=== PATIENT | male | born 1945 | race Caucasian/White ===

== ENCOUNTER 2017-05-17 11:08 | Inpatient (IN) ==
--- NOTE | 2017-05-17 11:32 | Emergency Department Note ---
Disposition Clinical Impression: Frail elderly, History of diabetes mellitus, History of hypertension, Tachycardia, Abnormal EKG, Pleural effusion, History of prostate cancer, Anemia HLD (hyperlipidemia) Qualifiers: Hyperlipidemia type: unspecified Qualified Code(s): E78.5 - Hyperlipidemia, unspecified Disposition: Admitted As Inpatient General Adult HPI - General Chief complaint: ED Chest Pain Stated complaint: chest pain Time Seen by Provider: 05/17/17 11:14 Source: patient, EMS Limitations: no limitations - History of Present Illness HPI Narrative: 71-year-old male presents to emergency department complaining of right-sided chest pain. The pain is associated with breathing and is sharp. There is no history of trauma rash or fever no cough coughing up blood like swelling or pain or syncope. The patient has no history of CAD, cardiac arrhythmia, primary lung problems, no previous DVT PE or current anticoagulation therapy. The patient reports he has a history of prostate cancer. There is been no abdominal pain vomiting or diarrhea. There is no history of fever or flank pain. The patient describes right-sided chest pain associated with breathing. This began last evening. There is no history of leg swelling or CHF. No problems moving the arms or legs independently. Patient has no history of aneurysm and there is no history of cool or weak or blue arms or legs. Pain Scale: 5 - Related Data Home Medications Medication Instructions Recorded Confirmed RX: Atorvastatin Calcium [Lipitor] 80 mg PO DAILY 01/07/15 05/17/17 RX: Cholecalciferol (D-3) 5,000 unit PO DAILY 01/07/15 05/17/17 RX: Lisinopril/Hydrochlorothiazide 1 tab PO DAILY 01/07/15 05/17/17 [Zestoretic 20-12.5 mg Tablet] RX: Primidone [Mysoline] 50 mg PO TID 01/07/15 05/17/17 RX: Metformin HCl [Metformin HCl 1,000 mg PO DAILY 11/25/16 05/17/17 ER] Previous Rx's Medication Instructions Recorded RX: Acetaminophen [Tylenol] 650 mg PO Q6HR PRN #0 tablet 11/25/16 Allergies Allergy/AdvReac Type Severity Reaction Status Date / Time meloxicam AdvReac See Verified 01/20/17 11:04 Comments All systems ED: reviewed and negative except as stated. Past Medical History - Past Medical History Medical history: Reports: diabetes, hyperlipidemia, hypertension Psychiatric history: Reports: no psych history - Social History Smoking Status: Former smoker Smokeless Tobacco Status: No Alcohol use: Reports: none Drug use: Reports: none Physical Exam - General Limitations: no limitations General appearance: alert, in distress - Head Head exam: atraumatic, normocephalic, normal inspection - Eye Eye exam: Present: normal appearance, PERRL, EOMI - ENT ENT exam: normal exam, normal oropharynx, mucous membranes moist, TM's normal bilaterally, normal external ear exam - Neck Neck exam: Present: normal inspection, full ROM, trachea midline - Chest Chest inspection: Present: normal inspection, symmetric chest wall rise. Absent : tenderness, rash - Respiratory Respiratory exam: Present: normal lung sounds bilaterally. Absent: respiratory distress, wheezes, accessory muscle use, prolonged expiratory phase - Cardiovascular Cardiovascular exam: Present: normal rhythm, tachycardia - Abdominal Exam Abdominal exam: Present: soft, Non-Tender, normal bowel sounds. Absent: tenderness, distention, guarding, rebound, rigidity - Extremities Exam Extremities exam: Present: normal inspection, full ROM, normal capillary refill. Absent: tenderness, pedal edema, joint swelling, calf tenderness - Expanded Lower Extremity Exam Neurovascular/Tendon exam: Present: normal capillary refill. Absent: motor deficit, sensory deficit, tendon deficit, extremity cold to touch, pallor - Back Exam Back exam: Present: normal inspection, full ROM. Absent: tenderness, CVA tenderness (R), CVA tenderness (L), vertebral tenderness - Neurological Exam Neurological exam: Present: alert, oriented X3, CN II-XII intact. Absent: motor sensory deficit - Psychiatric Psychiatric exam: Present: normal affect, normal mood - Skin Skin exam: Present: warm, dry, intact, normal color. Absent: rash, cyanosis, diaphoresis, erythema, pallor, mottled Course Vital Signs Temperature 98.0 F 05/17/17 11:11 Pulse Rate 108 05/17/17 11:11 Respiratory Rate 12 05/17/17 11:11 Blood Pressure 123/88 05/17/17 11:11 O2 Sat by Pulse Oximetry 97 05/17/17 11:11 Temperature 98.2 F 05/17/17 23:00 Pulse Rate 99 05/17/17 23:00 Respiratory Rate 18 05/17/17 23:05 Blood Pressure 152/84 05/17/17 23:00 O2 Sat by Pulse Oximetry 89 05/17/17 23:05 Oxygen Delivery Oxygen Delivery Nasal Cannula Medical Decision Making - MDM Narrative Medical decision making narrative: The patient complained of severe right-sided chest pain which presented as pleuritic. EKG showed what may be multifocal atrial beats versus atrial fibrillation, intermittently his heart rate was up in the 120s. Cardiac enzymes negative. Initial chest x-ray negative part. CT a chest and pelvis reveal no aneurysm or PE. Small pleural effusion noted on the right with what is described as multiple areas of atelectasis. Lactic acid and CRP negative. White count elevated slightly. Blood cultures were sent and Levaquin given IV. Pain control measures were initiated in the ED. Based on the patient's age, history of malignancy, severe right-sided chest pain, what appears to be a pleural effusion in association with a history of prostate cancer, abnormal EKG , tachycardia, and notable other changes on the CT of the chest, I thought would be appropriate to admit the patient to the hospital. His case with the hospitalist on-call who has accepted the patient to their care. The hospitalist came to the emergency department and evaluated the patient requested I consult pulmonology, formal call was made to pulmonology on-call who will act as business objects consultant. The patient is highly agreeable to admission and is stable pending admission. - Lab Data Lab results reviewed: Yes I reviewed the patient's lab results. Result diagrams: 05/17/17 11:52 05/17/17 11:52 Lab Results 05/17/17 05/17/17 05/17/17 Range/Units 11:52 11:52 11:52 WBC 11.7 H (4.3-11.1) K/mcL RBC 3.99 L (4.19-5.50) M/mcL Hgb 12.1 L (12.9-16.9) g/dL Hct 36.0 L (37.5-50.1) % MCV 90.2 (83.0-100.0) fL MCH 30.3 (28.0-33.3) pg MCHC 33.6 (31.6-35.5) g/dL RDW 13.6 (11.5-14.5) % Plt Count 238 (140-400) K/mcL MPV 10.4 (9.4-12.4) fL Immature Gran % 0.4 (0-4) % Seg Neutrophils % 89.0 % Lymphocytes % 4.5 % Monocytes % 5.7 % Eosinophils % 0.1 % Basophils % 0.3 % Neutrophils # 10.4 H (1.6-8.9) K/mcL Lymphocytes # 0.5 L (0.6-4.6) K/mcL Monocytes # 0.7 (0.0-1.3) K/mcL Eosinophils # 0.0 (0.0-0.6) K/mcL Basophils # 0.0 (0.0-0.2) K/mcL PT 11.7 (9.4-12.1) Seconds INR 1.1 APTT 27.7 (26.0-36.0) Seconds Sodium 140 (136-145) mEq/L Potassium 3.6 (3.5-4.5) mEq/L Chloride 104 (98-109) mEq/L Carbon Dioxide 26 (19-29) mEq/L BUN 13 (8-26) mg/dL Creatinine 0.85 (0.72-1.25) mg/dL Est GFR ( Amer) > 60 (> 60) Est GFR (Non-Af Amer) > 60 (> 60) BUN/Creatinine Ratio 15 (6-26) Glucose 122 H (70-99) mg/dL Calculated Osmolality 291 (280-300) Lactic Acid (0.5-2.2) mmol/L Calcium 9.5 (8.6-10.8) mg/dL Total Bilirubin 0.8 (0.2-1.2) mg/dL Direct Bilirubin 0.3 (0.0-0.5) mg/dL Indirect Bilirubin 0.5 (0.0-1.2) mg/dL AST 20 (5-34) Units/L ALT 23 (0-55) Units/L Alkaline Phosphatase 98 (38-126) Units/L Troponin I (0-0.03) ng/mL C-Reactive Protein 1 (Less than 5) mg/L B-Natriuretic Peptide (0-100) pg/mL Serum Total Protein 7.3 (6.0-8.3) g/dL Albumin 3.6 (3.5-5.0) g/dL Globulin 3.7 H (2.4-3.5) g/dL Albumin/Globulin Ratio 1.0 L (1.1-2.2) Lipase 32 (8-78) Units/L 05/17/17 05/17/17 05/17/17 Range/Units 11:52 14:36 14:36 WBC (4.3-11.1) K/mcL RBC (4.19-5.50) M/mcL Hgb (12.9-16.9) g/dL Hct (37.5-50.1) % MCV (83.0-100.0) fL MCH (28.0-33.3) pg MCHC (31.6-35.5) g/dL RDW (11.5-14.5) % Plt Count (140-400) K/mcL MPV (9.4-12.4) fL Immature Gran % (0-4) % Seg Neutrophils % % Lymphocytes % % Monocytes % % Eosinophils % % Basophils % % Neutrophils # (1.6-8.9) K/mcL Lymphocytes # (0.6-4.6) K/mcL Monocytes # (0.0-1.3) K/mcL Eosinophils # (0.0-0.6) K/mcL Basophils # (0.0-0.2) K/mcL PT (9.4-12.1) Seconds INR APTT (26.0-36.0) Seconds Sodium (136-145) mEq/L Potassium (3.5-4.5) mEq/L Chloride (98-109) mEq/L Carbon Dioxide (19-29) mEq/L BUN (8-26) mg/dL Creatinine (0.72-1.25) mg/dL Est GFR ( Amer) (> 60) Est GFR (Non-Af Amer) (> 60) BUN/Creatinine Ratio (6-26) Glucose (70-99) mg/dL Calculated Osmolality (280-300) Lactic Acid 1.8 (0.5-2.2) mmol/L Calcium (8.6-10.8) mg/dL Total Bilirubin (0.2-1.2) mg/dL Direct Bilirubin (0.0-0.5) mg/dL Indirect Bilirubin (0.0-1.2) mg/dL AST (5-34) Units/L ALT (0-55) Units/L Alkaline Phosphatase (38-126) Units/L Troponin I 0.02 (0-0.03) ng/mL C-Reactive Protein (Less than 5) mg/L B-Natriuretic Peptide 53 (0-100) pg/mL Serum Total Protein (6.0-8.3) g/dL Albumin (3.5-5.0) g/dL Globulin (2.4-3.5) g/dL Albumin/Globulin Ratio (1.1-2.2) Lipase (8-78) Units/L //17 Range/Units 17:45 WBC (4.3-11.1) K/mcL RBC (4.19-5.50) M/mcL Hgb (12.9-16.9) g/dL Hct (37.5-50.1) % MCV (83.0-100.0) fL MCH (28.0-33.3) pg MCHC (31.6-35.5) g/dL RDW (11.5-14.5) % Plt Count (140-400) K/mcL MPV (9.4-12.4) fL Immature Gran % (0-4) % Seg Neutrophils % % Lymphocytes % % Monocytes % % Eosinophils % % Basophils % % Neutrophils # (1.6-8.9) K/mcL Lymphocytes # (0.6-4.6) K/mcL Monocytes # (0.0-1.3) K/mcL Eosinophils # (0.0-0.6) K/mcL Basophils # (0.0-0.2) K/mcL PT (9.4-12.1) Seconds INR APTT (26.0-36.0) Seconds Sodium (136-145) mEq/L Potassium (3.5-4.5) mEq/L Chloride (98-109) mEq/L Carbon Dioxide (19-29) mEq/L BUN (8-26) mg/dL Creatinine (0.72-1.25) mg/dL Est GFR ( Amer) (> 60) Est GFR (Non-Af Amer) (> 60) BUN/Creatinine Ratio (6-26) Glucose (70-99) mg/dL Calculated Osmolality (280-300) Lactic Acid (0.5-2.2) mmol/L Calcium (8.6-10.8) mg/dL Total Bilirubin (0.2-1.2) mg/dL Direct Bilirubin (0.0-0.5) mg/dL Indirect Bilirubin (0.0-1.2) mg/dL AST (5-34) Units/L ALT (0-55) Units/L Alkaline Phosphatase (38-126) Units/L Troponin I 0.01 (0-0.03) ng/mL C-Reactive Protein (Less than 5) mg/L B-Natriuretic Peptide (0-100) pg/mL Serum Total Protein (6.0-8.3) g/dL Albumin (3.5-5.0) g/dL Globulin (2.4-3.5) g/dL Albumin/Globulin Ratio (1.1-2.2) Lipase (8-78) Units/L - Radiology Data Radiology results reviewed: Yes I reviewed the patient's radiology results.
[2017-05-17] MEDS ORDERED: *HR* Morphine 2 MG/ML SYRINGE IVP ONE ×2 (11:53→14:03)
[2017-05-17] MEDS ORDERED: Ondansetron 4 MG/2 ML VIAL IVP ONE (11:53)
[2017-05-17 12:17] LABS: Basophils % 0.3 %; Eosinophils % 0.1 %; Hemoglobin 12.1 g/dL (12.9-16.9); Immature Granulocytes % 0.4 % (0-4); Lymphocytes # 0.5 K/mcL (0.6-4.6); Lymphocytes % 4.5 %; Mean Corpuscular HGB Conc 33.6 g/dL (31.6-35.5); Mean Corpuscular Hemoglobin 30.3 pg (28.0-33.3); Mean Corpuscular Volume 90.2 fL (83.0-100.0); Mean Platelet Volume 10.4 fL (9.4-12.4); Monocytes # 0.7 K/mcL (0.0-1.3); Monocytes % 5.7 %; Neutrophils # 10.4 K/mcL (1.6-8.9); Platelet Count 238 K/mcL (140-400); Red Blood Count 3.99 M/mcL (4.19-5.50); Red Cell Distribution Width 13.6 % (11.5-14.5)
[2017-05-17 12:29] LABS: INR 1.1; Prothrombin Time 11.7 Seconds (9.4-12.1)
[2017-05-17 12:32] LABS: Activated Partial Thrombo Time 27.7 Seconds (26.0-36.0); Alanine Aminotransferase 23 Units/L (0-55); Albumin 3.6 g/dL (3.5-5.0); Alkaline Phosphatase 98 Units/L (38-126); Aspartate Amino Transferase 20 Units/L (5-34); BUN/Creatinine Ratio 15 (6-26); Bilirubin,Direct 0.3 mg/dL (0.0-0.5); Bilirubin,Indirect 0.5 mg/dL (0.0-1.2); Bilirubin,Total 0.8 mg/dL (0.2-1.2); Blood Urea Nitrogen 13 mg/dL (8-26); Calcium 9.5 mg/dL (8.6-10.8); Carbon Dioxide 26 mEq/L (19-29); Chloride 104 mEq/L (98-109); Globulin 3.7 g/dL (2.4-3.5); Glucose 122 mg/dL (70-99); Lipase 32 Units/L (8-78); Osmolality,Calculated 291 (280-300); Potassium 3.6 mEq/L (3.5-4.5); Sodium 140 mEq/L (136-145); Total Protein 7.3 g/dL (6.0-8.3); eGFR For African Americans > 60 (> 60); eGFR For Non-African Americans > 60 (> 60)
[2017-05-17 12:50] LABS: C-Reactive Protein 1 mg/L (Less than 5)
[2017-05-17] MEDS ORDERED: Levofloxacin 750 MG/150 ML 750 MG/150 ML BAG IVPB ONE (13:58)
[2017-05-17] MEDS ORDERED: Acetaminophen 325 MG TABLET PO PRN (16:42)
--- NOTE | 2017-05-17 16:48 | Internal Med History&Physical ---
<Johnny Wright - Last Filed: 05/17/17 16:45> Date of Encounter: 05/17/17 Time of Encounter: 16:45 Assessment and Plan (1) Atypical pneumonia Current visit: Yes Status: Acute Rt sided pleuritic chest pain, CTA of chest negative for PE only revealing patchy airspace disease and trace right pleural effusion, I believe this may be an atypical pneumonia. Pulmonology also suspecting atypical pneumonia. The patient is in mild respiratory distress with prolonged expiratory phase, no wheezing noted. Heart rate is irregular at 89 bpm, he appears to be in no acute distress. Troponin negative She will start patient on ceftriaxone and azithromycin Obtain flu swab now Start bronchodilators There is no wheezing so hold off on steroids Continuous SPO2, continuous telemetry Respiratory support per nasal cannula with goal to maintain his PO2 greater than 92% CBC, BMP in the morning (2) Pleural effusion Current visit: Yes Status: Acute See plan above (3) Chest pain Current visit: Yes Status: Acute Right-sided chest pain described as sharp and increases with respiration. The pleuritic. CTA chest negative. Initial troponin negative. Obtain additional troponin to rule out cardiac etiology No prior cardiac history Continues telemetry Qualifiers: Chest pain type: chest pain on breathing Qualified Code(s): R07.1 - Chest pain on breathing; R07.81 - Pleurodynia (4) HTN (hypertension) Current visit: Yes Status: Chronic Stable. Resume lisinopril hydrochlorothiazide Qualifiers: Hypertension type: essential hypertension Qualified Code(s): I10 - Essential (primary) hypertension (5) DMII (diabetes mellitus, type 2) Current visit: Yes Status: Chronic Stop oral hypoglycemic agents. Start sliding scale insulin coverage with before meals and at bedtime Accu-Cheks and diabetic/cardiac diet Qualifiers: Diabetes mellitus complication status: without complication Diabetes mellitus correction insulin use: unspecified correction insulin use status Qualified Code(s): E11.9 - Type 2 diabetes mellitus without complications (6) HLD (hyperlipidemia) Current visit: Yes Status: Acute Continue atorvastatin Qualifiers: Hyperlipidemia type: unspecified Qualified Code(s): E78.5 - Hyperlipidemia , unspecified (7) DVT prophylaxis Current visit: Yes Status: Acute Heparin 5000 units SC twice a day Internal Medicine - H&P: HPI Chief complaint: Dyspnea, sharp right-sided chest pain Admitted From: Home Plans for Post Hospital Care: Home History of present illness: Mr. Nunes is a 71 year old male with PMH of DM, HIB, HTN and colon cancer. He presents to the ED today with right-sided chest pain is described as sharp which began yesterday evening has continued into today. He reports chest pain is worse with breathing, not exacerbated with activity. Denies any diaphoresis , nausea, fevers, chills, abdominal pain, unilateral extremity swelling or pain. No prior history of DVT or PE, now any current anticoagulation therapy. Does have a history of CAD and cardiac arrhythmias. Past Med Surg Social Fam HX - Past Medical History Medical history: diabetes, hyperlipidemia, hypertension Psychiatric history: no psych history - Social History Smoking Status: Former smoker Smokeless Tobacco Status: No Alcohol use: none Drug use: none - Additional Family History Additional family history: Noncontributory Internal Medicine - H&P: Meds Atorvastatin Calcium [Lipitor] 80 mg PO DAILY 01/07/15 [History] Cholecalciferol (D-3) 5,000 unit PO DAILY 01/07/15 [History] Lisinopril/Hydrochlorothiazide [Zestoretic 20-12.5 mg Tablet] 1 tab PO DAILY 03/14 [History] Primidone [Mysoline] 50 mg PO TID 01/07/15 [History] Acetaminophen [Tylenol] 650 mg PO Q6HR PRN #0 tablet 11/25/16 [Rx] Metformin HCl [Metformin HCl ER] 1,000 mg PO DAILY 11/25/16 [History] 3 Allergy/AdvReac Type Severity Reaction Status Date / Time meloxicam AdvReac See Verified 01/20/17 11:04 Comments All Systems PM: A 10-system review of systems was performed and is negative for pertinent findings except as documented above in the HPI. - Constitutional Constitutional: no chills, no fever(s), no night sweats - EENT Eyes: no change in vision, no discharge, no pain, no photophobia Ears: no ear discharge, no ear pain, no tinnitus Nose, mouth and throat: no dysphagia, no nasal discharge, no neck pain, no sore throat - Cardiovascular Cardiovascular ROS IM: dyspnea, orthopnea, paroxysmal nocturnal dyspnea, no chest pain, no diaphoresis, no irregular heart rhythm, no lightheadedness, no palpitations, no syncope - Respiratory Respiratory: dyspnea, dyspnea on exertion, pain on inspiration, no cough, no hemoptysis, no wheezing, no stridor, no chest congestion, no excessive phlegm production, no change in phlegm color, no pain with cough - Gastrointestinal Gastrointestinal: no abdominal pain, no diarrhea, no hematemesis, no hematochezia, no melena, no nausea, no vomiting - Musculoskeletal Musculoskeletal ROS IM: no numbness, no tingling - Integumentary Integumentary IM: no rash, no unusual bruising - Neurological Neurological ROS: no confusion, no convulsions, no focal weakness, no numbness, no tingling, no tremor(s) - Hematologic/Lymphatic Hematologic/Lymphatic: no easy bruising - Constitutional Vitals: Temp Pulse Resp BP Pulse Ox 97.4 F L 82 16 136/89 96 05/17/17 16:00 05/17/17 16:00 05/17/17 16:00 05/17/17 16:00 05/17/17 16:00 General appearance: Present: cooperative, mild distress, A&O X 3, obese, answers questions appropriately - Head Head exam: Present: atraumatic, normocephalic - Eye Eye exam: Present: EOMI, PERRL, conjuntiva pink, sclera anicteric Pupils: Present: PERRL - Neck Neck exam general surgery: Present: supple, trachea midline. Absent: lymphadenopathy - Respiratory Respiratory exam: Present: decreased breath sounds, prolonged expiratory phase, tachypnea. Absent: accessory muscle use, chest wall tenderness, rales, respiratory distress, rhonchi, wheezes - Cardiovascular Cardiovascular exam: Present: irregular rhythm, +S1, +S2. Absent: diastolic murmur, gallop, rubs, systolic murmur, tachycardia - GI/Abdominal GI/Abdominal exam: Present: normal bowel sounds, soft, no peritoneal signs. Absent: distended, tenderness - Extremities Exam Extremities exam: Present: normal capillary refill, normal inspection, warm, radial pulses palpable and symmetrical. Absent: calf tenderness, cyanotic, pedal edema - Neurological Exam Neurological exam: Present: alert, oriented X3, no focal deficits. Absent: pronater drift, facial droop, speech deficit - Skin Skin exam: Present: dry, intact Internal Med - H&P Results - Labs CBC & Chem 7: 05/17/17 11:52 05/17/17 11:52 - EKG Data -: EKG Interpreted by Myself - EKG Data Prior EKG available for review: yes When compared to previous EKG: there is no significant change EKG comments: EKG appears to have multifocal atrial tachycardia 05/17/17 16:50 05/17/17 16:51 - Diagnostic Studies Chest x-ray Status: image reviewed by me Additional comments: Stable cardiomegaly Pulmonary venous hypertension No acute pulmonary artery modalities CT scan - chest Status: image reviewed by me Additional comments: Trace right pleural effusion patchy airspace disease within the lower lobe and lingula No PE noted <NaviDenilson ashby - Last Filed: 05/17/17 18:54> Date of Encounter: 05/17/17 Internal Medicine - H&P: HPI History of present illness: Mr. Nunes is a 71 year old male All Systems PM: A 10-system review of systems was performed and is negative for pertinent findings except as documented above in the HPI. - Constitutional Vitals: Temp Pulse Resp BP Pulse Ox 98.0 F 109 20 135/85 95 05/17/17 18:27 05/17/17 18:27 05/17/17 18:27 05/17/17 18:27 05/17/17 18:27 Internal Med - H&P Results - Labs CBC & Chem 7: 05/17/17 11:52 05/17/17 11:52 - Attending Attestation I examined this patient and my medical decision-making was reviewed with the Resident Physician. I agree with the documented findings, disposition and treatment plan as described except to the extent set forth below.
[2017-05-17] MEDS ORDERED: D5% in Water 1,000 ML IVC PRN (17:06)
[2017-05-17] MEDS ORDERED: Dextrose Gel 15 GM PO PRN ×2 (17:06)
[2017-05-17] MEDS ORDERED: *HR* Dextrose 50 % in Water (Syg) 50 ML SYRINGE IVP PRN (17:06)
[2017-05-17] MEDS ORDERED: Ondansetron 4 MG/2 ML VIAL IVP PRN (17:08)
[2017-05-17] MEDS ORDERED: Naloxone 0.4 MG/ML INJ IVP PRN (17:08)
[2017-05-17] MEDS ORDERED: *HR* Morphine 2 MG/ML SYRINGE IVP PRN (17:14)
--- NOTE | 2017-05-17 17:23 | Electrocardiograph Report ---
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
--- NOTE | 2017-05-17 17:46 | Pulmonology Consult Note ---
Date of Encounter: 05/17/17 Time of Encounter: 15:00 Assessment and Plan (1) Atypical pneumonia Current Visit: Yes Status: Acute Patient comes with atypical symptoms , will rule out flu with respiratory infection panel , legionella and mycoplasma . Will cover her with Ceftriaxone and Azithromycin (2) COPD (chronic obstructive pulmonary disease) Current Visit: Yes Status: Acute Patient doesnt have PFT's on file reviewing the CT scan he has airtrapping suggestive of small airways disease . early emphysema , the long standing untreated asthma will lead to COPD changes , patient doesnt have much wheezing will hold off steroids , will put him on bronchodilators agree with primary team to rule out for ACS . If the wheezing symptoms worsen will start on steroids . Qualifiers: Emphysema type: centrilobular Qualified Code(s): J43.2 - Centrilobular emphysema (3) Acute respiratory failure Current Visit: Yes Status: Acute Large PE was ruled very small sub segmetal PE is hard to visualize because of the timing of the bolus , since there is patchy bilateral air space disease will treat for pneumonia for now will closely monitor . 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 Past Med Surg Social Fam HX - Past Medical History Medical history: diabetes, hyperlipidemia, hypertension Psychiatric history: no psych history - Social History Smoking Status: Former smoker Smokeless Tobacco Status: No Alcohol use: none Drug use: none Medications and Allergies Atorvastatin Calcium [Lipitor] 80 mg PO DAILY 01/07/15 [History] Cholecalciferol (D-3) 5,000 unit PO DAILY 01/07/15 [History] Lisinopril/Hydrochlorothiazide [Zestoretic 20-12.5 mg Tablet] 1 tab PO DAILY 03/14 [History] Primidone [Mysoline] 50 mg PO TID 01/07/15 [History] Acetaminophen [Tylenol] 650 mg PO Q6HR PRN #0 tablet 11/25/16 [Rx] Metformin HCl [Metformin HCl ER] 1,000 mg PO DAILY 11/25/16 [History] 3 Allergy/AdvReac Type Severity Reaction Status Date / Time meloxicam AdvReac See Verified 01/20/17 11:04 Comments All Systems: A 10-system review of systems was performed and is negative for pertinent findings except as documented above in the HPI. Physical Examination Vital Signs: Vital Signs, Last 4 Hours Temp Pulse Resp BP Pulse Ox 05/17/17 16:00 97.4 F L 82 16 136/89 96 05/17/17 15:38 84 14 125/88 96 Auscultation: bilateral: clear, diminished breath sounds (mildly dminished in the bases ) Results - Laboratory Findings CBC and BMP: 05/17/17 11:52 05/17/17 11:52 PT/INR, D-dimer PT 11.7 Seconds (9.4-12.1) 05/17/17 11:52 Abnormal lab findings: Abnormal lab results WBC 11.7 K/mcL (4.3-11.1) H 05/17/17 11:52 RBC 3.99 M/mcL (4.19-5.50) L 05/17/17 11:52 Hgb 12.1 g/dL (12.9-16.9) L 05/17/17 11:52 Hct 36.0 % (37.5-50.1) L 05/17/17 11:52 Neutrophils # 10.4 K/mcL (1.6-8.9) H 05/17/17 11:52 Lymphocytes # 0.5 K/mcL (0.6-4.6) L 05/17/17 11:52 Glucose 122 mg/dL (70-99) H 05/17/17 11:52 Globulin 3.7 g/dL (2.4-3.5) H 05/17/17 11:52 Albumin/Globulin Ratio 1.0 (1.1-2.2) L 05/17/17 11:52 - Clinical Findings Intake & Output: Intake & Output 05/17/17 05/17/17 05/17/17 07:59 15:59 23:59 Intake Total 150 / 150 Balance 150 / 150 Weight 109.769 kg Consult Discharge Plan - Plan Referrals: Richelle Nassar MD [Primary Care Provider] -
[2017-05-17] MEDS: cefTRIAXone 1,000 MG in Water for inj. (sterile) 10 ML IVP SCH (17:50)
[2017-05-17] MEDS: *HR* Heparin 5,000 UNIT/ML VIAL SQ SCH (17:51)
[2017-05-17] MEDS: Ipratropium/Albuterol Neb 3 ML IH SCH ×3 (19:32→23:05)
[2017-05-17] MEDS: Insulin LISPRO 300 UNITS/3 ML VIAL SQ SCH (20:49)
[2017-05-17] MEDS: Primidone 50 MG TABLET PO SCH (20:49)
[2017-05-18] MEDS: Ipratropium/Albuterol Neb 3 ML IH SCH ×6 (04:06→23:52)
[2017-05-18 04:40] LABS: Basophils % 0.4 %; Eosinophils # 0.1 K/mcL (0.0-0.6); Eosinophils % 0.7 %; Hematocrit 33.1 % (37.5-50.1); Hemoglobin 10.6 g/dL (12.9-16.9); Immature Granulocytes % 0.3 % (0-4); Lymphocytes % 13.2 %; Mean Corpuscular Hemoglobin 29.4 pg (28.0-33.3); Mean Corpuscular Volume 91.9 fL (83.0-100.0); Mean Platelet Volume 10.5 fL (9.4-12.4); Monocytes # 0.7 K/mcL (0.0-1.3); Monocytes % 9.3 %; Neutrophils # 5.5 K/mcL (1.6-8.9); Platelet Count 192 K/mcL (140-400); Red Cell Distribution Width 13.5 % (11.5-14.5); Segmented Neutrophils % 76.1 %
[2017-05-18 04:54] LABS: Blood Urea Nitrogen 14 mg/dL (8-26); Carbon Dioxide 28 mEq/L (19-29); Chloride 101 mEq/L (98-109); Glucose 118 mg/dL (70-99); Osmolality,Calculated 284 (280-300); Potassium 3.9 mEq/L (3.5-4.5); Sodium 136 mEq/L (136-145)
[2017-05-18 05:13] LABS: BUN/Creatinine Ratio 15 (6-26); eGFR For African Americans > 60 (> 60); eGFR For Non-African Americans > 60 (> 60)
[2017-05-18] MEDS: *HR* Heparin 5,000 UNIT/ML VIAL SQ SCH ×2 (05:30→17:14)
[2017-05-18] MEDS: Insulin LISPRO 300 UNITS/3 ML VIAL SQ SCH ×4 (07:33→20:22)
[2017-05-18] MEDS: Primidone 50 MG TABLET PO SCH ×3 (09:38→20:22)
[2017-05-18] MEDS: Lisinopril-HCTZ 20-12.5mg TABLET PO SCH (09:39)
[2017-05-18] MEDS: Azithromycin 500 MG in D5% in Water 250 ML IVPB SCH (09:39)
[2017-05-18] MEDS: Cholecalciferol (D-3) 1,000 UNIT TABLET PO SCH (09:41)
--- NOTE | 2017-05-18 11:30 | Pulmonology Progress Note ---
Date of Encounter: 05/18/17 Time of Encounter: 10:30 Assessment and Plan (1) Atypical pneumonia Current Visit: Yes Status: Acute Still respiratory virus panel is pending which was ordered to continue ceftriaxone and Azithromycin pending legionella . To continue the current regimen of antibiotics (2) COPD (chronic obstructive pulmonary disease) Current Visit: Yes Status: Acute Patient COPD symptoms are stable will add Symbicort to albuterol , patient says he benefitted from albuterol nebulizer informed RN to inform VENDING ROUTE SERVICER to arrange for nebulizer on discharge , will see him in the clinic in 8 weeks Qualifiers: Emphysema type: centrilobular Qualified Code(s): J43.2 - Centrilobular emphysema (3) Acute respiratory failure Current Visit: Yes Status: Acute Patient V/Q mismatch is resolved now on room air , will need to assess exercise oximetry before discharge. Qualifiers: Respiratory failure complication: hypoxia Qualified Code(s): J96.01 - Acute respiratory failure with hypoxia Subjective Principal diagnosis: Atypical pneumonia Interval history: Patient is standing in the room feels lot better walking around the room with no obvious respiratory distress . Objective PUL Vital signs: Last Vital Signs Temp 98.1 F 05/18/17 10:52 Pulse 85 05/18/17 10:52 Resp 18 05/18/17 11:20 BP 140/67 05/18/17 10:52 Pulse Ox 4 05/18/17 11:20 Auscultation: bilateral: clear Results - Laboratory Findings CBC and BMP: 05/18/17 04:05 05/18/17 04:05 PT/INR, D-dimer PT 11.7 Seconds (9.4-12.1) 05/17/17 11:52 Abnormal lab findings: Abnormal lab results RBC 3.60 M/mcL (4.19-5.50) L 05/18/17 04:05 Hgb 10.6 g/dL (12.9-16.9) L D 05/18/17 04:05 Hct 33.1 % (37.5-50.1) L 05/18/17 04:05 Glucose 118 mg/dL (70-99) H 05/18/17 04:05 POC Glucose 141 (58-89) H 05/17/17 20:20 Globulin 3.7 g/dL (2.4-3.5) H 05/17/17 11:52 Albumin/Globulin Ratio 1.0 (1.1-2.2) L 05/17/17 11:52 - Clinical Findings Intake & Output: Intake & Output 05/17/17 05/18/17 05/18/17 23:59 07:59 15:59 Intake Total 620 / 1100 480 / 480 Output Total 650 / 850 675 / 675 525 / 525 Balance -30 / 250 -675 / -675 -45 / -45 Weight 109.815 kg Consult Discharge Plan - Plan Referrals: Richelle Nassar MD [Primary Care Provider] - 06/02/17 11:20 am
--- NOTE | 2017-05-18 14:52 | Internal Med Progress Note ---
Date of Encounter: 05/18/17 Time of Encounter: 14:10 - Assessment and plan (1) Atypical pneumonia Current Visit: Yes Status: Acute Assessment and plan: Patient reports feeling unwell for a few weeks. He presented with right-sided pleuritic chest pain and CTA chest negative for PE. CT also showed patchy airspace disease and trace right pleural effusion. This is most possibly an atypical pneumonia. Pulmonology has seen the patient, they also suspect atypical pneumonia. Patient does not appear to be in respiratory distress today, he is not wearing supplemental oxygen at this time. He does not wear home O2. Lungs are very diminished, minimal aeration is noted on exam. There is no wheezing, rhonchi, or rales. He has been started on Rocephin and Zithromax, he is getting bronchodilators. Continue SPO2 and telemetry. Continue to monitor labs and patient condition. Consider 6 minute walk test tomorrow for oxygen qualification at home. Flu swab is negative. Patient's vital signs are stable. (2) HTN (hypertension) Current Visit: Yes Status: Chronic Assessment and plan: Well-controlled. Continue home medication. Qualifiers: Hypertension type: essential hypertension Qualified Code(s): I10 - Essential (primary) hypertension (3) DMII (diabetes mellitus, type 2) Current Visit: Yes Status: Chronic Assessment and plan: A1c 6.4% in March,. Continue sliding scale insulin, Accu-Cheks before meals and at bedtime, diabetic diet. Qualifiers: Diabetes mellitus complication status: without complication Diabetes mellitus ferry terminal supervisor insulin use: unspecified mcc insulin use status Qualified Code(s): E11.9 - Type 2 diabetes mellitus without complications (4) COPD (chronic obstructive pulmonary disease) Current Visit: Yes Status: Acute Assessment and plan: Per pulmonology note. Patient has not had PFTs on file, CT reveals air trapping , suggestive of small airway disease, early emphysema. Continue bronchodilators and treat for pneumonia. Since there is no wheezing, we will hold off on steroids at this time. Qualifiers: Emphysema type: centrilobular Qualified Code(s): J43.2 - Centrilobular emphysema (5) DVT prophylaxis Current Visit: Yes Status: Acute Assessment and plan: Heparin subcutaneous daily. - Time Spent With Patient less than 15 minutes - Subjective Interval history: Patient was seen and assessed@1410. He states that he feels better today, though he feels like he may not be ready to go home. He reports he did not know that he was even ill when he got here. Patient is not requiring any supplemental oxygen. He lives at home with his son who is frequently not there as well independently with ADLs. Pending his condition and labs, patient will be discharged tomorrow. He denies productive cough, headache, blurred vision, nausea vomiting or diarrhea, abdominal pain, or dizziness. - Constitutional Vitals: Temp Pulse Resp BP Pulse Ox 98.1 F 85 18 140/67 4 05/18/17 10:52 05/18/17 10:52 05/18/17 11:20 05/18/17 10:52 05/18/17 11:20 General appearance: Present: cooperative, mild distress, A&O X 3, pleasant, obese, answers questions appropriately - Head Head exam: Present: atraumatic, normal inspection, normocephalic - Eye Eye exam: Present: normal appearance, conjuntiva pink, sclera anicteric - Neck Neck exam general surgery: Present: supple, trachea midline. Absent: lymphadenopathy - Respiratory Respiratory exam: Present: decreased breath sounds, CTAB. Absent: accessory muscle use, chest wall tenderness, rales, rhonchi, wheezes - Cardiovascular Cardiovascular exam: Present: RRR, +S1, +S2. Absent: diastolic murmur, gallop, rubs, systolic murmur - GI/Abdominal GI/Abdominal exam: Present: distended, normal bowel sounds, soft, no peritoneal signs. Absent: hepatomegaly, tenderness - Extremities Exam Extremities exam: Present: normal capillary refill, normal inspection, warm, radial pulses palpable and symmetrical. Absent: calf tenderness, cyanotic, pedal edema, tenderness - Neurological Exam Neurological exam: Present: alert, oriented X3, no focal deficits. Absent: facial droop, speech deficit - Skin Skin exam: Present: dry, intact, normal color, warm. Absent: rash Internal Medicine: Result - Labs CBC & Chem 7: 05/18/17 04:05 05/18/17 04:05 Labs: Short CBC 05/18/17 Range/Units 04:05 WBC 7.2 (4.3-11.1) K/mcL Hgb 10.6 L D (12.9-16.9) g/dL Hct 33.1 L (37.5-50.1) % Plt Count 192 (140-400) K/mcL Neutrophils # 5.5 (1.6-8.9) K/mcL BMP 05/18/17 04:05 Sodium 136 Potassium 3.9 Chloride 101 Carbon Dioxide 28 BUN 14 Creatinine 0.96 Glucose 118 H Calcium 9.0 - ABG Interpretation ABG results: PT/INR, D-dimer PT 11.7 Seconds (9.4-12.1) 05/17/17 11:52 Consult Discharge Plan - Plan Referrals: Richelle Nassar MD [Primary Care Provider] - 06/02/17 11:20 am
[2017-05-18] MEDS: cefTRIAXone 1,000 MG in Water for inj. (sterile) 10 ML IVP SCH (17:16)
[2017-05-18] MEDS: Budesonide/Formoterol 80/4.5 MDI IH SCH (23:51)
[2017-05-19] MEDS: Ipratropium/Albuterol Neb 3 ML IH SCH ×3 (04:21→11:28)
[2017-05-19] MEDS: *HR* Heparin 5,000 UNIT/ML VIAL SQ SCH (04:57)
[2017-05-19 05:19] LABS: Basophils % 0.6 %; Eosinophils # 0.1 K/mcL (0.0-0.6); Eosinophils % 1.5 %; Hematocrit 33.2 % (37.5-50.1); Hemoglobin 10.8 g/dL (12.9-16.9); Immature Granulocytes % 0.2 % (0-4); Lymphocytes # 1.3 K/mcL (0.6-4.6); Lymphocytes % 24.4 %; Mean Corpuscular HGB Conc 32.5 g/dL (31.6-35.5); Mean Corpuscular Hemoglobin 30.1 pg (28.0-33.3); Mean Corpuscular Volume 92.5 fL (83.0-100.0); Mean Platelet Volume 10.4 fL (9.4-12.4); Monocytes # 0.5 K/mcL (0.0-1.3); Monocytes % 9.7 %; Neutrophils # 3.3 K/mcL (1.6-8.9); Platelet Count 186 K/mcL (140-400); Red Blood Count 3.59 M/mcL (4.19-5.50); Red Cell Distribution Width 13.8 % (11.5-14.5); Segmented Neutrophils % 63.6 %
[2017-05-19 05:34] LABS: BUN/Creatinine Ratio 14 (6-26); Blood Urea Nitrogen 13 mg/dL (8-23); Calcium 8.7 mg/dL (8.6-10.3); Carbon Dioxide 31 mEq/L (23-29); Chloride 102 mEq/L (98-107); Glucose 142 mg/dL (70-105); Osmolality,Calculated 293 (280-300); Potassium 3.8 mEq/L (3.5-5.1); Sodium 140 mEq/L (136-145); eGFR For African Americans > 60 (> 60); eGFR For Non-African Americans > 60 (> 60)
[2017-05-19 06:54] VITALS: BP 124/67
[2017-05-19] MEDS: Budesonide/Formoterol 80/4.5 MDI IH SCH (07:23)
[2017-05-19] MEDS: Insulin LISPRO 300 UNITS/3 ML VIAL SQ SCH (07:34)
[2017-05-19] MEDS: Cholecalciferol (D-3) 1,000 UNIT TABLET PO SCH (10:31)
[2017-05-19] MEDS: Primidone 50 MG TABLET PO SCH (10:31)
[2017-05-19] MEDS: Lisinopril-HCTZ 20-12.5mg TABLET PO SCH (10:31)
[2017-05-19] MEDS: Azithromycin 500 MG in D5% in Water 250 ML IVPB SCH (10:32)
--- NOTE | 2017-05-19 11:32 | Discharge Summary ---
Date of Encounter: 05/19/17 Time of Encounter: 08:40 - Discharge Diagnosis (1) Atypical pneumonia Priority: Primary Status: Acute Comments: Patient reports feeling unwell for a few weeks. He presented with right-sided pleuritic chest pain and CTA chest negative for PE. CT also showed patchy airspace disease and trace right pleural effusion. This is most possibly an atypical pneumonia. Pulmonology has seen the patient, they also suspect atypical pneumonia. Patient does not appear to be in respiratory distress today, he is not wearing supplemental oxygen at this time. He does not wear home O2. Lungs are very diminished, minimal aeration is noted on exam. There is no wheezing, rhonchi, or rales. He has been started on Rocephin and Zithromax, he is getting bronchodilators. Flu swab is negative. Patient's vital signs are stable. He will be discharged with antibiotics, and Mucinex (2) HTN (hypertension) Priority: Secondary Status: Chronic Comments: Chronic. Continue home medications. Qualifiers: Hypertension type: essential hypertension Qualified Code(s): I10 - Essential (primary) hypertension (3) DMII (diabetes mellitus, type 2) Priority: Secondary Status: Chronic Comments: A1c 6.4% 04/16. Continue home medications and accucheck regimen. Qualifiers: Diabetes mellitus complication status: without complication Diabetes mellitus adjunct faculty for medical terminology insulin use: unspecified detention insulin use status Qualified Code(s): E11.9 - Type 2 diabetes mellitus without complications (4) COPD (chronic obstructive pulmonary disease) Priority: Secondary Status: Acute Comments: Per pulmonology note. Patient has not had PFTs on file, CT reveals air trapping , suggestive of small airway disease, early emphysema. Continue bronchodilators and treat for pneumonia. Since there is no wheezing, we will hold off on steroids at this time. Qualifiers: Emphysema type: centrilobular Qualified Code(s): J43.2 - Centrilobular emphysema (5) DVT prophylaxis Priority: Secondary Status: Acute Comments: Heparin SQ daily. - Discharge Medications Prescriptions: Albuterol Sulfate [Albuterol Inhaler] 2 puff IH Q4HR PRN #1 hfa.aer.ad PRN Reason: Shortness Of Breath Azithromycin [Zithromax] 250 mg PO DAILY #5 tablet Budesonide/Formoterol 160/4.5 [Symbicort 160/4.5] 1 puff IH BIDR #1 hfa.aer.ad GuaiFENesin ER [Mucinex] 600 mg PO BID PRN #20 tbbp.12hr PRN Reason: Cough Home Medications: Atorvastatin Calcium [Lipitor] 80 mg PO DAILY 01/07/15 [History] Cholecalciferol (D-3) 5,000 unit PO DAILY 01/07/15 [History] Lisinopril/Hydrochlorothiazide [Zestoretic 20-12.5 mg Tablet] 1 tab PO DAILY 03/14 [History] Primidone [Mysoline] 50 mg PO TID 01/07/15 [History] Acetaminophen [Tylenol] 650 mg PO Q6HR PRN #0 tablet 11/25/16 [Rx] Metformin HCl [Metformin HCl ER] 1,000 mg PO DAILY 11/25/16 [History] Albuterol Sulfate [Albuterol Inhaler] 2 puff IH Q4HR PRN #1 hfa.aer.ad 05/19/17 [Rx] Azithromycin [Zithromax] 250 mg PO DAILY #5 tablet 05/19/17 [Rx] Budesonide/Formoterol 160/4.5 [Symbicort 160/4.5] 1 puff IH BIDR #1 hfa.aer.ad 05/19/17 [Rx] GuaiFENesin ER [Mucinex] 600 mg PO BID PRN #20 tbbp.12hr 05/19/17 [Rx] Allergies/Adverse Reactions: 3 Allergy/AdvReac Type Severity Reaction Status Date / Time meloxicam AdvReac See Verified 01/20/17 11:04 Comments Date of admission: 05/17/17 18:42 Primary care physician: Richelle Nassar MD Discharging clinician: Roxi Park Anticipated date of discharge: 05/19/17 - Patient Status Disposition: Home, Self-Care Condition: Good Functional capacity at discharge: independent ambulation - Discharge Instructions Instructions: Chest Pain (DC), Pneumonia (DC) Follow Up With: Richelle Nassar MD [Primary Care Provider] - 06/02/17 11:20 am Additional Instructions: Please take your medications as directed See your PCP for a recheck in the next 7-10 days. Return to the ER as needed for any other problems or concerns. - Diet and Activity Activity: increase activity as tolerated Diet: advance to your usual diet Hospital course: Mr. Nunes is a 71 year old male with PMH of prostate ca, HTN, HLD, DMII, anemia , COPD who was admitted for pna and will be sent home with antibiotics, inhalers , and Mucinex for cough. He states that he has returned to his baseline and that he feels better and is ready to go home. His lungs are clear and diminished and he is no respiratory distress, no wheezing, rales, ronchi, or stridor. He denies chest pain, n/d/v, headache dizziness, abdominal pain. Vitals and Labs are stable and WNL. He is appropriate for discharge. - Time Spent with Patient Total time spent providing and/or coordinating discharge services: Less than 30 minutes - Constitutional Vitals: Temp Pulse Resp BP Pulse Ox 98.0 F 84 16 124/67 95 05/19/17 06:53 05/19/17 06:53 05/19/17 07:25 05/19/17 06:53 05/19/17 07:25 General appearance: Present: cooperative, mild distress, A&O X 3, pleasant, obese, answers questions appropriately - Head Head exam: Present: atraumatic, normal inspection, normocephalic - Eye Eye exam: Present: normal appearance, conjuntiva pink, sclera anicteric - Neck Neck exam general surgery: Present: supple, trachea midline. Absent: lymphadenopathy - Respiratory Respiratory exam: Present: CTAB. Absent: accessory muscle use, rales, rhonchi, wheezes - Cardiovascular Cardiovascular exam: Present: RRR, +S1, +S2. Absent: diastolic murmur, gallop, rubs, systolic murmur - GI/Abdominal GI/Abdominal exam: Present: normal bowel sounds, soft. Absent: distended, hepatomegaly, tenderness - Extremities Exam Extremities exam: Present: normal capillary refill, warm, radial pulses palpable and symmetrical. Absent: calf tenderness, cyanotic, pedal edema, tenderness - Neurological Exam Neurological exam: Present: alert, oriented X3, no focal deficits. Absent: facial droop, speech deficit - Skin Skin exam: Present: dry, intact, normal color. Absent: rash, warm
--- NOTE | 2017-05-19 11:32 | Pulmonology Progress Note ---
Date of Encounter: 05/19/17 Time of Encounter: 11:20 Assessment and Plan (1) Atypical pneumonia Current Visit: Yes Status: Acute Still respiratory virus panel is pending which was ordered to continue ceftriaxone and Azithromycin pending legionella . To continue the current regimen of antibiotics (2) COPD (chronic obstructive pulmonary disease) Current Visit: Yes Status: Acute Patient COPD symptoms are stable will add Symbicort to albuterol , patient says he benefitted from albuterol nebulizer informed RN to inform PILOT CAPTAIN to arrange for nebulizer on discharge , will see him in the clinic in 8 weeks Qualifiers: Qualified Code(s): J43.2 - Centrilobular emphysema (3) Acute respiratory failure Current Visit: Yes Status: Acute Patient V/Q mismatch is resolved now on room air , will need to assess exercise oximetry before discharge. Qualifiers: Qualified Code(s): J96.01 - Acute respiratory failure with hypoxia Subjective Principal diagnosis: Atypical pneumonia Interval history: Patient is standing in the room feels lot better walking around the room with no obvious respiratory distress . Objective PUL Vital signs: Last Vital Signs Temp 98.0 F 05/19/17 06:53 Pulse 84 05/19/17 06:53 Resp 16 05/19/17 07:25 BP 124/67 05/19/17 06:53 Pulse Ox 95 05/19/17 07:25 Results - Laboratory Findings CBC and BMP: 05/19/17 04:50 05/19/17 04:50 PT/INR, D-dimer PT 11.7 Seconds (9.4-12.1) 05/17/17 11:52 Abnormal lab findings: Abnormal lab results RBC 3.59 M/mcL (4.19-5.50) L 05/19/17 04:50 Hgb 10.8 g/dL (12.9-16.9) L 05/19/17 04:50 Hct 33.2 % (37.5-50.1) L 05/19/17 04:50 Carbon Dioxide 31 mEq/L (23-29) H 05/19/17 04:50 Glucose 142 mg/dL (70-105) H 05/19/17 04:50 POC Glucose 172 (58-89) H 05/18/17 16:43 Globulin 3.7 g/dL (2.4-3.5) H 05/17/17 11:52 Albumin/Globulin Ratio 1.0 (1.1-2.2) L 05/17/17 11:52 - Clinical Findings Intake & Output: Intake & Output 05/18/17 05/19/17 05/19/17 23:59 07:59 15:59 Intake Total 1790 / 1790 360 / 360 Output Total 1750 / 1750 500 / 500 400 / 400 Balance 40 / 40 -500 / -500 -40 / -40 Weight 109.724 kg Consult Discharge Plan - Plan Instructions: Chest Pain (DC), Pneumonia (DC) Referrals: Richelle Nassar MD [Primary Care Provider] - 06/02/17 11:20 am
== END 2017-05-19 12:51 | disposition home or self-care (01) | DRG 190 ==
LOC: 3BNU 11:08 → EMEROO 11:08 → 3BNU 15:44
PROVIDERS: ADMIT Registered Nurse; ATTEND Registered Nurse

== ENCOUNTER 2019-06-28 08:56 | Inpatient (IN) ==
[2019-06-28] MEDS ORDERED: Ringers Solution, Lactated 1,000 ML IVC SCH ×2 (09:15→10:15)
[2019-06-28] MEDS ORDERED: cefOXitin 2,000 MG in Water for inj. (sterile) 20 ML IVP ONE (09:15)
[2019-06-28] MEDS ORDERED: Ondansetron 4 MG/2 ML VIAL IVP ONE (10:07)
[2019-06-28] MEDS ORDERED: *HR* OxyCODONE Immed Rel 5 MG TABLET PO PRN (10:07)
[2019-06-28] MEDS ORDERED: Bupivacaine/EPI 1:200k 0.25%PF 10 ML VIAL INFILT ONE (10:33)
[2019-06-28] MEDS ORDERED: *HR* Midazolam HCl 2 MG/2 ML VIAL ONE ×2 (11:04→11:52)
[2019-06-28] MEDS ORDERED: *HR* Propofol 200 MG/20 ML VIAL IVP ONE ×3 (11:04→11:53)
[2019-06-28] MEDS ORDERED: *HR* Rocuronium Bromide 50 MG/5 ML VIAL ONE (11:04)
[2019-06-28] MEDS ORDERED: *HR* FentaNYL (PF) 100 MCG/2 ML VIAL ONE ×3 (11:04→11:52)
[2019-06-28] MEDS ORDERED: *HR* Succinylcholine 200 MG/10 ML VIAL IVP ONE (11:04)
[2019-06-28] MEDS ORDERED: Dexamethasone 4 MG/ML VIAL ONE (11:16)
[2019-06-28] MEDS ORDERED: Ondansetron 4 MG/2 ML VIAL ONE (11:16)
[2019-06-28] MEDS ORDERED: *HR* PHENYLEPHRINE 1,000 MCG/10 ML SYRINGE IVP ONE (11:18)
[2019-06-28] MEDS ORDERED: EPHEDrine 50 MG/ML VIAL ONE (11:33)
[2019-06-28] MEDS ORDERED: Neostigmine Methylsulfate 3 MG/3 ML SYRINGE ONE (12:06)
[2019-06-28] MEDS: *HR* HYDROmorphone (PF) 1 MG/ML SYRINGE IVP PRN ×3 (12:47→13:10)
[2019-06-28] MEDS ORDERED: Dextrose Gel 15 GM/37.5 ML TUBE PO PRN ×2 (14:15)
[2019-06-28] MEDS ORDERED: D5% in Water 1,000 ML IVC PRN (14:15)
[2019-06-28] MEDS ORDERED: *HR* Dextrose 50 % in Water (Syg) 50 ML SYRINGE IVP PRN (14:15)
[2019-06-28] MEDS ORDERED: Acetaminophen 325 MG TABLET PO PRN (14:15)
[2019-06-28] MEDS ORDERED: Ondansetron 4 MG/2 ML VIAL IVP PRN (14:15)
[2019-06-28] MEDS: Ringers Solution, Lactated 1,000 ML IVC SCH (14:59)
[2019-06-28] MEDS: amLODIPine 5 MG TABLET PO SCH (15:02)
[2019-06-28] MEDS: Lisinopril 20 MG TABLET PO SCH (15:03)
[2019-06-28 15:27] LABS: Hematocrit 29.3 % (37.5-50.1); Hemoglobin 8.8 g/dL (12.9-16.9)
[2019-06-28] MEDS: *HR* OxyCODONE/APAP 5/325 TABLET PO PRN ×2 (17:01→23:32)
[2019-06-28] MEDS: Insulin LISPRO 300 UNITS/3 ML VIAL SQ SCH (17:01)
[2019-06-28] MEDS: Primidone 50 MG TABLET PO SCH (20:49)
[2019-06-28] MEDS: *HR* Metformin 500 MG TABLET PO SCH (20:49)
[2019-06-29] MEDS: Ringers Solution, Lactated 1,000 ML IVC SCH (01:48)
[2019-06-29 04:11] LABS: Basophils % 0.3 %; Eosinophils % 0.3 %; Hematocrit 26.6 % (37.5-50.1); Hemoglobin 8.3 g/dL (12.9-16.9); Immature Granulocytes % 0.4 % (0-4); Lymphocytes # 1.1 K/mcL (0.6-4.6); Lymphocytes % 10.2 %; Mean Corpuscular HGB Conc 31.2 g/dL (31.6-35.5); Mean Corpuscular Hemoglobin 23.8 pg (28.0-33.3); Mean Corpuscular Volume 76.2 fL (83.0-100.0); Mean Platelet Volume 10.5 fL (9.4-12.4); Monocytes % 9.1 %; Neutrophils # 8.9 K/mcL (1.6-8.9); Platelet Count 287 K/mcL (140-400); Red Blood Count 3.49 M/mcL (4.19-5.50); Red Cell Distribution Width 15.2 % (11.5-14.5); Segmented Neutrophils % 79.7 %; White Blood Count 11.2 K/mcL (4.3-11.1)
[2019-06-29 04:33] LABS: BUN/Creatinine Ratio 11 (6-26); Blood Urea Nitrogen 11 mg/dL (8-23); Calcium 8.8 mg/dL (8.6-10.3); Carbon Dioxide 26 mEq/L (23-29); Chloride 99 mEq/L (98-107); Glucose 134 mg/dL (70-105); Osmolality,Calculated 275 (280-300); Potassium 3.8 mEq/L (3.5-5.1); Sodium 132 mEq/L (136-145); eGFR For African Americans > 60 (> 60); eGFR For Non-African Americans > 60 (> 60)
[2019-06-29] MEDS: Primidone 50 MG TABLET PO SCH ×2 (08:13→21:12)
[2019-06-29] MEDS: *HR* OxyCODONE/APAP 5/325 TABLET PO PRN (08:14)
[2019-06-29] MEDS: Lisinopril 20 MG TABLET PO SCH (08:14)
[2019-06-29] MEDS: amLODIPine 5 MG TABLET PO SCH (08:14)
[2019-06-29] MEDS: *HR* Metformin 500 MG TABLET PO SCH ×2 (08:14→21:12)
[2019-06-29] MEDS: Metoprolol XL (24 HR) Succ 25 MG TAB.ER.24H PO SCH (08:14)
[2019-06-29] MEDS: Insulin LISPRO 300 UNITS/3 ML VIAL SQ SCH ×3 (08:15→17:40)
[2019-06-29] MEDS ORDERED: Lisinopril 20 MG TABLET PO SCH (09:00)
[2019-06-29] MEDS ORDERED: amLODIPine 5 MG TABLET PO SCH (09:00)
[2019-06-29] MEDS ORDERED: Acetaminophen 325 MG TABLET PO PRN (12:08)
[2019-06-29] MEDS ORDERED: Ondansetron 4 MG/2 ML VIAL IVP PRN (12:09)
[2019-06-30 04:35] LABS: Basophils % 0.4 %; Eosinophils # 0.1 K/mcL (0.0-0.6); Eosinophils % 1.2 %; Hematocrit 24.8 % (37.5-50.1); Hemoglobin 7.7 g/dL (12.9-16.9); Immature Granulocytes % 0.3 % (0-4); Lymphocytes # 1.3 K/mcL (0.6-4.6); Lymphocytes % 14.3 %; Mean Corpuscular Volume 77.3 fL (83.0-100.0); Mean Platelet Volume 10.8 fL (9.4-12.4); Monocytes # 0.9 K/mcL (0.0-1.3); Monocytes % 9.7 %; Neutrophils # 6.6 K/mcL (1.6-8.9); Platelet Count 236 K/mcL (140-400); Red Blood Count 3.21 M/mcL (4.19-5.50); Red Cell Distribution Width 15.5 % (11.5-14.5); Segmented Neutrophils % 74.1 %; White Blood Count 8.9 K/mcL (4.3-11.1)
[2019-06-30] MEDS: Metoprolol XL (24 HR) Succ 25 MG TAB.ER.24H PO SCH (08:24)
[2019-06-30] MEDS: *HR* Metformin 500 MG TABLET PO SCH ×2 (08:25→20:53)
[2019-06-30] MEDS: Primidone 50 MG TABLET PO SCH ×2 (08:25→20:53)
[2019-06-30] MEDS: amLODIPine 5 MG TABLET PO SCH (08:25)
[2019-06-30] MEDS: Insulin LISPRO 300 UNITS/3 ML VIAL SQ SCH ×3 (08:27→16:06)
[2019-06-30] MEDS: *HR* OxyCODONE/APAP 5/325 TABLET PO PRN (08:29)
[2019-06-30] MEDS ORDERED: 0.9 % Sodium Chloride 250 ML IVC SCH (09:45)
[2019-07-01 06:59] LABS: Basophils # 0.1 K/mcL (0.0-0.2); Basophils % 0.7 %; Eosinophils # 0.2 K/mcL (0.0-0.6); Eosinophils % 2.9 %; Hematocrit 30.1 % (37.5-50.1); Hemoglobin 9.1 g/dL (12.9-16.9); Immature Granulocytes % 0.1 % (0-4); Lymphocytes # 1.2 K/mcL (0.6-4.6); Lymphocytes % 15.1 %; Mean Corpuscular HGB Conc 30.2 g/dL (31.6-35.5); Mean Corpuscular Hemoglobin 24.7 pg (28.0-33.3); Mean Corpuscular Volume 81.8 fL (83.0-100.0); Mean Platelet Volume 10.7 fL (9.4-12.4); Monocytes # 0.9 K/mcL (0.0-1.3); Monocytes % 10.5 %; Neutrophils # 5.7 K/mcL (1.6-8.9); Platelet Count 205 K/mcL (140-400); Red Blood Count 3.68 M/mcL (4.19-5.50); Red Cell Distribution Width 15.9 % (11.5-14.5); Segmented Neutrophils % 70.7 %; White Blood Count 8.1 K/mcL (4.3-11.1)
[2019-07-01] MEDS: Insulin LISPRO 300 UNITS/3 ML VIAL SQ SCH (08:27)
[2019-07-01] MEDS: amLODIPine 5 MG TABLET PO SCH (09:31)
[2019-07-01] MEDS: *HR* Metformin 500 MG TABLET PO SCH (09:31)
[2019-07-01] MEDS: Primidone 50 MG TABLET PO SCH (09:32)
[2019-07-01] MEDS: Metoprolol XL (24 HR) Succ 25 MG TAB.ER.24H PO SCH (09:32)
[2019-07-01] MEDS: *HR* OxyCODONE/APAP 5/325 TABLET PO PRN (09:37)
[2019-07-01 10:47] VITALS: BP 149/68
== END 2019-07-01 12:50 | disposition home or self-care (01) | DRG 348 ==
LOC: SAMDAY 08:56 → 3ANU 14:08
PROVIDERS: ADMIT Surgery; ATTEND Surgery

== ENCOUNTER 2020-11-06 20:01 | Observation (INO) ==
[2020-11-06] MEDS ORDERED: Ondansetron 4 MG/2 ML VIAL IVP ONE (20:57)
[2020-11-06 21:22] LABS: Basophils % 0.3 %; Eosinophils % 0.3 %; Hematocrit 35.7 % (37.5-50.1); Hemoglobin 11.7 g/dL (12.9-16.9); Immature Granulocytes % 0.2 % (0-4); Lymphocytes # 0.2 K/mcL (0.6-4.6); Lymphocytes % 3.8 %; Mean Corpuscular HGB Conc 32.8 g/dL (31.6-35.5); Mean Corpuscular Hemoglobin 30.3 pg (28.0-33.3); Mean Corpuscular Volume 92.5 fL (83.0-100.0); Mean Platelet Volume 10.3 fL (9.4-12.4); Monocytes # 0.3 K/mcL (0.0-1.3); Monocytes % 5.5 %; Neutrophils # 5.4 K/mcL (1.6-8.9); Platelet Count 180 K/mcL (140-400); Red Blood Count 3.86 M/mcL (4.19-5.50); Red Cell Distribution Width 13.2 % (11.5-14.5); Segmented Neutrophils % 89.9 %
[2020-11-06 21:40] LABS: Alanine Aminotransferase 23 Units/L (7-52); Albumin 3.7 g/dL (3.5-5.7); Albumin/Globulin Ratio 1.4 (1.1-2.2); Alkaline Phosphatase 60 Units/L (34-104); Aspartate Amino Transferase 20 Units/L (13-39); BUN/Creatinine Ratio 17 (6-26); Bilirubin,Direct 0.2 mg/dL (0.0-0.2); Bilirubin,Indirect 0.4 mg/dL (0.0-1.0); Bilirubin,Total 0.6 mg/dL (0.3-1.0); Blood Urea Nitrogen 19 mg/dL (8-23); Calcium 8.5 mg/dL (8.6-10.3); Carbon Dioxide 25 mEq/L (23-29); Chloride 104 mEq/L (98-107); Globulin 2.7 g/dL (2.4-3.5); Glucose 130 mg/dL (70-105); Lipase 15 Units/L (11-82); Osmolality,Calculated 288 (280-300); Potassium 3.5 mEq/L (3.5-5.1); Sodium 137 mEq/L (136-145); Total Protein 6.4 g/dL (6.4-8.9); eGFR For African Americans > 60 (> 60); eGFR For Non-African Americans > 60 (> 60)
[2020-11-06 21:41] LABS: Troponin I < 0.03 ng/mL (< 0.04)
[2020-11-06] MEDS ORDERED: Aspirin 81 MG TAB.CHEW PO ONE (23:45)
[2020-11-07] MEDS ORDERED: Melatonin 3 MG TABLET PO PRN (01:23)
[2020-11-07] MEDS ORDERED: Naloxone 0.4 MG/ML INJ IVP PRN (01:23)
[2020-11-07 03:16] LABS: Basophils % 0.4 %; Eosinophils % 0.4 %; Hematocrit 33.8 % (37.5-50.1); Hemoglobin 11.2 g/dL (12.9-16.9); Immature Granulocytes % 0.2 % (0-4); Lymphocytes # 0.3 K/mcL (0.6-4.6); Lymphocytes % 6.9 %; Mean Corpuscular HGB Conc 33.1 g/dL (31.6-35.5); Mean Corpuscular Hemoglobin 30.6 pg (28.0-33.3); Mean Corpuscular Volume 92.3 fL (83.0-100.0); Mean Platelet Volume 10.6 fL (9.4-12.4); Monocytes # 0.3 K/mcL (0.0-1.3); Monocytes % 7.4 %; Neutrophils # 3.8 K/mcL (1.6-8.9); Platelet Count 180 K/mcL (140-400); Red Blood Count 3.66 M/mcL (4.19-5.50); Red Cell Distribution Width 13.2 % (11.5-14.5); Segmented Neutrophils % 84.7 %; White Blood Count 4.5 K/mcL (4.3-11.1)
[2020-11-07 03:21] LABS: INR 1.1; Prothrombin Time 13.1 Seconds (9.4-12.1)
[2020-11-07 03:41] LABS: Alanine Aminotransferase 20 Units/L (7-52); Albumin 3.5 g/dL (3.5-5.7); Albumin/Globulin Ratio 1.5 (1.1-2.2); Alkaline Phosphatase 54 Units/L (34-104); Aspartate Amino Transferase 20 Units/L (13-39); BUN/Creatinine Ratio 18 (6-26); Bilirubin,Total 0.5 mg/dL (0.3-1.0); Blood Urea Nitrogen 19 mg/dL (8-23); Calcium 8.1 mg/dL (8.6-10.3); Carbon Dioxide 23 mEq/L (23-29); Chloride 106 mEq/L (98-107); Globulin 2.4 g/dL (2.4-3.5); Glucose 121 mg/dL (70-105); Magnesium 1.5 mg/dL (1.6-2.6); Osmolality,Calculated 286 (280-300); Phosphorous 3.3 mg/dL (2.7-4.5); Potassium 3.6 mEq/L (3.5-5.1); Sodium 136 mEq/L (136-145); Total Protein 5.9 g/dL (6.4-8.9); Troponin I < 0.03 ng/mL (< 0.04); eGFR For African Americans > 60 (> 60); eGFR For Non-African Americans > 60 (> 60)
[2020-11-07] MEDS ORDERED: 0.9 % Sodium Chloride 1,000 ML IVC ONE (04:01)
[2020-11-07] MEDS ORDERED: *HR* Dextrose 50 % in Water (Vial) 50 ML VIAL IVP PRN (04:02)
[2020-11-07] MEDS ORDERED: Dextrose Gel 15 GM/37.5 ML TUBE PO PRN ×2 (04:02)
[2020-11-07] MEDS ORDERED: D5% in Water 1,000 ML IVC PRN (04:02)
[2020-11-07] MEDS ORDERED: Insulin LISPRO 300 UNITS/3 ML VIAL SUBQ SCH (06:00)
[2020-11-07] MEDS ORDERED: *HR* Enoxaparin 120 MG/0.8 ML SYRINGE SQ SCH (06:00)
[2020-11-07 09:35] LABS: Adenovirus F 40/41 PCR Not detected (Not detect); Astrovirus PCR Not detected (Not detect); C.difficile Toxin A/B Gene PCR Not detected (Not detect); Campylobacter by PCR Not detected (Not detect); Cryptosporidium by PCR Not detected (Not detect); Cyclospora cayetanensis PCR Not detected (Not detect); E. coli O157 by PCR Not detected (Not detect); Entamoeba histolytica PCR Not detected (Not detect); Enteroaggregative E.coli(EAEC) Not detected (Not detect); Enteropathogenic E.coli(EPEC) Not detected (Not detect); Enterotoxigenic E.coli (ETEC) Not detected (Not detect); Giardia lamblia PCR Not detected (Not detect); Norovirus GI/GII PCR Not detected (Not detect); Plesiomonas shigelloides PCR Not detected (Not detect); Rotavirus A PCR Not detected (Not detect); Salmonella PCR Not detected (Not detect); Sapovirus PCR Not detected (Not detect); Shig/EnteroinvasiveE coli EIEC Not detected (Not detect); Shigalike tox-prod E coli STEC Not detected (Not detect); Vibrio PCR Not detected (Not detect); Vibrio cholerae PCR Not detected (Not detect); Yersinia enterocolitica PCR Not detected (Not detect)
[2020-11-07] MEDS: Metoprolol XL (24 HR) Succ 25 MG TAB.ER.24H PO SCH (11:49)
[2020-11-07] MEDS: Insulin LISPRO 300 UNITS/3 ML VIAL SUBQ SCH ×2 (11:50→16:51)
[2020-11-07] MEDS: Acetaminophen 325 MG TABLET PO PRN (20:06)
[2020-11-07] MEDS: Primidone 50 MG TABLET PO SCH (20:06)
[2020-11-07] MEDS: Ondansetron 4 MG/2 ML VIAL IVP PRN (20:08)
[2020-11-07] MEDS ORDERED: *HR* Metoprolol 5 MG/5 ML VIAL IVP ONE (21:32)
[2020-11-08 02:39] LABS: Basophils % 0.4 %; Eosinophils # 0.1 K/mcL (0.0-0.6); Eosinophils % 1.2 %; Hemoglobin 11.2 g/dL (12.9-16.9); Immature Granulocytes % 0.4 % (0-4); Lymphocytes # 0.7 K/mcL (0.6-4.6); Mean Corpuscular Hemoglobin 29.9 pg (28.0-33.3); Mean Corpuscular Volume 93.6 fL (83.0-100.0); Mean Platelet Volume 10.6 fL (9.4-12.4); Monocytes # 0.5 K/mcL (0.0-1.3); Monocytes % 10.1 %; Neutrophils # 3.6 K/mcL (1.6-8.9); Platelet Count 165 K/mcL (140-400); Red Blood Count 3.74 M/mcL (4.19-5.50); Red Cell Distribution Width 12.9 % (11.5-14.5); Segmented Neutrophils % 73.9 %; White Blood Count 4.9 K/mcL (4.3-11.1)
[2020-11-08 02:59] LABS: BUN/Creatinine Ratio 17 (6-26); Blood Urea Nitrogen 17 mg/dL (8-23); Calcium 8.4 mg/dL (8.6-10.3); Carbon Dioxide 24 mEq/L (23-29); Chloride 105 mEq/L (98-107); Glucose 119 mg/dL (70-105); Osmolality,Calculated 287 (280-300); Potassium 3.6 mEq/L (3.5-5.1); Sodium 137 mEq/L (136-145); eGFR For African Americans > 60 (> 60); eGFR For Non-African Americans > 60 (> 60)
[2020-11-08 03:03] LABS: Anisocytosis 1+ (Not Present); Platelet Estimate Normal (Normal); Reactive Lymphocytes Present (Not Present); Toxic Granulation Present (Not Present)
[2020-11-08] MEDS: Nitroglycerin 0.4 MG TAB.SUBL SL SCH ×3 (04:20→04:47)
[2020-11-08] MEDS: Acetaminophen 325 MG TABLET PO PRN (04:33)
[2020-11-08] MEDS: Ondansetron 4 MG/2 ML VIAL IVP PRN (04:35)
[2020-11-08] MEDS ORDERED: *HR* Enoxaparin 40 MG/0.4 ML SYRINGE SQ SCH (06:00)
[2020-11-08] MEDS ORDERED: Regadenoson 0.4 MG/5 ML SYRINGE IVP ONE (07:29)
[2020-11-08] MEDS: Metoprolol XL (24 HR) Succ 25 MG TAB.ER.24H PO SCH (08:17)
[2020-11-08] MEDS: Primidone 50 MG TABLET PO SCH (08:17)
[2020-11-08] MEDS: Insulin LISPRO 300 UNITS/3 ML VIAL SUBQ SCH ×2 (08:24→11:09)
[2020-11-08] MEDS ORDERED: lisinopriL 10 MG TABLET PO SCH (09:00)
[2020-11-08] MEDS ORDERED: Cholecalciferol (D-3) 1,000 UNIT (25MCG) TABLET PO SCH (09:00)
[2020-11-08] MEDS ORDERED: amLODIPine 5 MG TABLET PO SCH (09:00)
[2020-11-08 11:05] VITALS: BP 154/85
== END 2020-11-08 15:29 | disposition home or self-care (01) ==
LOC: 2ANU 20:01 → EMEROOARM 20:01 → SUATTDRO 11-07 00:30 → 2ANU 11-07 01:18
PROVIDERS: ADMIT Family Medicine; ATTEND Internal Medicine

== ENCOUNTER 2022-03-03 18:37 | Observation (INO) ==
[2022-03-03] MEDS ORDERED: Iopamidol - 370 500 ML MLS IVP ONE (22:53)
[2022-03-03 22:58] LABS: Basophils # 0.1 K/mcL (0.0-0.2); Basophils % 0.7 %; Eosinophils # 0.1 K/mcL (0.0-0.6); Eosinophils % 1.6 %; Hemoglobin 12.1 g/dL (12.9-16.9); Immature Granulocytes % 0.3 % (0-4); Lymphocytes # 1.7 K/mcL (0.6-4.6); Lymphocytes % 22.1 %; Mean Corpuscular HGB Conc 33.6 g/dL (31.6-35.5); Mean Corpuscular Hemoglobin 31.3 pg (28.0-33.3); Mean Corpuscular Volume 93.3 fL (83.0-100.0); Mean Platelet Volume 10.9 fL (9.4-12.4); Monocytes # 0.6 K/mcL (0.0-1.3); Monocytes % 8.3 %; Neutrophils # 5.1 K/mcL (1.6-8.9); Platelet Count 198 K/mcL (140-400); Red Blood Count 3.86 M/mcL (4.19-5.50); White Blood Count 7.6 K/mcL (4.3-11.1)
[2022-03-03 23:20] LABS: Calcium 9.4 mg/dL (8.6-10.3); Potassium 3.3 mEq/L (3.5-5.1)
[2022-03-04] MEDS ORDERED: Lidocaine -MPF 1% 5 ML AMPUL INFILT ONE (00:30)
[2022-03-04] MEDS ORDERED: Ondansetron 4 MG/2 ML VIAL IVP PRN (01:47)
[2022-03-04] MEDS ORDERED: Naloxone 0.4 MG/ML INJ IVP PRN (01:47)
[2022-03-04] MEDS ORDERED: Acetaminophen 325 MG TABLET PO PRN (01:47)
[2022-03-04 01:53] LABS: Source,Synovial Fluid JOINT
[2022-03-04 02:25] LABS: Appearance,Synovial Fluid Hazy (Clear-Hazy); Color,Synovial Fluid Straw (Straw)
[2022-03-04] MEDS ORDERED: D5% in Water 1,000 ML IVC PRN (02:55)
[2022-03-04] MEDS ORDERED: Dextrose Gel 15 GM/37.5 ML TUBE PO PRN ×2 (02:55)
[2022-03-04] MEDS ORDERED: *HR* Dextrose 50 % in Water (Syg) 50 ML SYRINGE IVP PRN (02:55)
[2022-03-04 05:17] LABS: Hematocrit 31.9 % (37.5-50.1); Mean Corpuscular HGB Conc 32.9 g/dL (31.6-35.5); Mean Corpuscular Hemoglobin 30.6 pg (28.0-33.3); Mean Platelet Volume 11.3 fL (9.4-12.4); Platelet Count 173 K/mcL (140-400); Red Blood Count 3.43 M/mcL (4.19-5.50); White Blood Count 5.6 K/mcL (4.3-11.1)
[2022-03-04 05:18] LABS: Hemoglobin 10.5 g/dL (12.9-16.9)
[2022-03-04 05:35] LABS: Calcium 8.9 mg/dL (8.6-10.3); Potassium 3.1 mEq/L (3.5-5.1)
[2022-03-04] MEDS ORDERED: Potassium Chloride Elixir 20 MEQ/15 ML UDC PO ONE (06:44)
[2022-03-04 07:04] VITALS: BP 136/68; PULSE 74; TEMP 98.3; O2SAT 94
[2022-03-04] MEDS: Insulin LISPRO 300 UNITS/3 ML VIAL SUBQ SCH ×2 (07:38→11:33)
== END 2022-03-04 11:50 | disposition home or self-care (01) ==
LOC: 3BNU 18:37 → EMEROOARM 18:37 → SUATTDRO 03-04 01:22 → 3BNU 03-04 01:41
PROVIDERS: ADMIT Internal Medicine; ATTEND Internal Medicine